=== PATIENT | male | born 1995 | race Caucasian/White ===

== ENCOUNTER 2017-01-13 12:31 | Emergency (ER) | payer MEDICAID ==
[~2017-01-13 12:31] MED LIST: NO MEDICATIONS
== END 2017-01-13 12:46 | disposition home or self-care (01) ==
LOC: SED 12:31
DX: F19.10 Other psychoactive substance abuse, uncomplicated (principal); F17.200 Nicotine dependence, unspecified, uncomplicated
CPT/HCPCS: 99284